=== PATIENT | female | born 1935 | race Caucasian/White ===

== ENCOUNTER 2018-05-02 21:49 | Emergency (ER) | payer OTHER ==
[~2018-05-02] VITALS: Ht 162.6 cm; Wt 50.8 kg
[2018-05-02] MEDS ORDERED: XARELTO10 MG ORAL (22:06)
[2018-05-02 22:10] VITALS: BP 132/81
[2018-05-02] MEDS: Morphine Sulfate 2mg/ml Inj IVP ONE ×2 (22:28→23:42)
--- NOTE | 2018-05-02 22:28 | Emergency Room Report ---
History of Present Illness General Chief Complaint: Upper Extremity Injury Source: Patient Present Illness HPI Patient is an 82-year-old female presented after increased left wrist pain. Patient reportedly had a fall in her hotel room. Patient is visiting from the [place] area. Patient was noted to have increased pain after the fall she denies any other locations of injury. This occurred approximately 2 hours prior to arrival. Allergies: Coded Allergies: No Known Allergies (Unverified , 05/02/18) Patient History Last Menstrual Period: MARC Reviewed Nursing Documentation: PMH: Agreed; PSxH: Agreed Nursing Documentation-PMH Past Medical History: No Stated History Hx Cardiac Problems: Yes - A FIB Review of Systems All Other Systems: negative except mentioned in HPI Physical Exam Vital Signs Date Time Temp Pulse Resp B/P (MAP) Pulse Ox O2 Delivery O2 Flow Rate FiO2 05/02/18 22:00 98.1 86 15 132/81 99 Room Air General Appearance: well appearing, no apparent distress, GCS 15 Head: normocephalic, atraumatic ENT: hearing grossly normal, normal voice Neck: full range of motion, supple Respiratory: no respiratory distress, speaking full sentences Musculoskeletal: swelling - deformity of wrist Neurologic: alert, oriented x3, responsive, lab coordinator III-XII nml as tested, normal gait Psychiatric: mood/affect normal Skin: no rash Medical Decision Making Diagnostic Impression: Primary Impression: Fall Additional Impression: Fracture of distal end of radius and ulna ER Course Patient presented after a fall. Differential diagnosis included was not limited to neck fracture, CVA, close head injury, syncopal episode, basilar ischemia. Because of complexity of patient's case laboratory imaging studies were ordered. CT of the head read by radiology showed no evidence of acute intracranial hemorrhage or fracture.. Right upper extremity x-rays showed a distal radius fracture as well as ulnar styloid fracture. Patient was placed in a splint. She is given prescription for pain medications. Patient was given pain medications while in the emergency department as well. Patient was advised to follow-up for orthopedics. Patient was advised to return for any concerns. Last Vital Signs Date Time Temp Pulse Resp B/P (MAP) Pulse Ox O2 Delivery O2 Flow Rate FiO2 05/02/18 22:10 98.1 78 15 132/81 99 Room Air Status: improved Disposition: HOME, SELF-CARE Condition: Stable Scripts Docusate Sodium* (COLACE*) 100 Mg Capsule 100 MG ORAL TWICE A DAY, #30 CAP Prov: Lucio Kerns MD 05/02/18 Hydrocodone Bit/Acetaminophen 5-325* (NORCO 5-325*) 1 Each Tablet 1 TAB ORAL Q4H PRN for For Pain, #20 TAB 0 Refills Prov: Lucio Kerns MD 05/02/18 Lucio Kerns MD May 02, 2018 22:28
[2018-05-02] MEDS: Bupivacaine 0.5% Inj 30 ml vial INJ ONE (22:30)
[2018-05-02] MEDS ORDERED: Morphine Sulfate 4mg/ml Inj (IV/IM USE ONLY) IVP ONE (22:30)
--- NOTE | 2018-05-02 23:26 | Diagnostic Imaging Report ---
EXAM: XR Left Wrist Complete, 3 or More Views CLINICAL HISTORY: PAIN TECHNIQUE: Frontal, lateral and oblique views of the left wrist. COMPARISON: No relevant prior studies available. FINDINGS: Bones/joints: Minimally posterior angulated radial Colles' fracture without clear extension to the radiocarpal joint. Distal ulnar metadiaphyseal fracture and ulnar styloid process fracture with displacement. Osteopenia. No dislocation. Soft tissues: Surrounding soft tissue edema. No radiopaque foreign body. IMPRESSION: 1. Minimally posterior angulated radial Colles' fracture without clear extension to the radiocarpal joint. 2. Distal ulnar metadiaphyseal fracture and ulnar styloid process fracture with displacement. 3. Surrounding soft tissue edema.
--- NOTE | 2018-05-02 23:51 | Diagnostic Imaging Report ---
EXAM: CT Head Without Intravenous Contrast CLINICAL HISTORY: PAIN TECHNIQUE: Axial computed tomography images of the head/brain without intravenous contrast. CTDI is 70.5 mGy and DLP is 1414 mGy-cm. One or more of the following dose reduction techniques were used: automated exposure control, adjustment of the mA and/or kV according to patient size, use of iterative reconstruction technique. COMPARISON: No relevant prior studies available. FINDINGS: Brain: Mild parenchymal volume loss and mild white matter nonspecific hypoattenuation likely secondary to chronic microvascular ischemia. No hemorrhage. Ventricles: Unremarkable. No ventriculomegaly. Bones/joints: Unremarkable. No acute fracture. Soft tissues: Unremarkable. Sinuses: Small left maxillary sinus mucosal retention cyst, otherwise normal paranasal sinuses. Mastoid air cells: Unremarkable as visualized. No mastoid effusion. IMPRESSION: 1. No acute intracranial abnormality. 2. Mild chronic senescent findings above. 3. Otherwise unremarkable study.
[2018-05-02] MEDS ORDERED: NORCO 5-325 TA1 EACH ORAL (23:54)
[2018-05-02] MEDS ORDERED: COLACE100 MG ORAL (23:54)
[2018-05-03 00:05] VITALS: BP 131/80
== END 2018-05-03 00:05 | disposition home or self-care (01) ==
LOC: EMR 22:30
DX: S52.532A Colles' fracture of left radius, initial encounter for closed fracture (principal); S52.612A Displaced fracture of left ulna styloid process, initial encounter for closed fracture; W19.XXXA Unspecified fall, initial encounter; Y92.59 Other trade areas as the place of occurrence of the external cause; I48.91 Unspecified atrial fibrillation; R51 Headache
CPT/HCPCS: 70450; 73110; 96372; 96374; 96375; 96376; 99284; J2270; J2405